=== PATIENT | male | born 1940 | race Caucasian/White ===

== ENCOUNTER 2020-05-08 16:28 | Inpatient (IN) | payer MEDICARE ==
[2020-05-08] MEDS ORDERED: Senokot S 8.6-50 MG TAB PO PRN (19:38)
[2020-05-08] MEDS ORDERED: Ventolin HFA Inhaler 60 PUFF INHALER INH PRN (19:38)
[2020-05-08] MEDS: CeleCOXIB 100 MG CAP PO SCH (20:06)
[2020-05-08] MEDS: traMADol HCl 50 MG TAB PO SCH (20:06)
[2020-05-08] MEDS: Apixaban 5 MG TAB PO SCH (20:06)
[2020-05-09 06:02] LABS: #Basophils 0.2 thou/uL (0.0-0.2); #Eosinphils 0.4 thou/uL (0.0-0.7); #Lymphocytes 3.1 thou/uL (1.20-3.40); #Monocytes 0.8 thou/uL (0.11-0.59); #Neutrophils 5.1 thou/uL (1.40-6.50); %Basophils 1.6 % (0.0-1.0); %Eosinophils 4.7 % (0.0-10.0); %Lymphocytes 31.8 % (21.0-51.0); %Monocytes 8.5 % (0.0-10.0); %Neutrophils 53.4 % (42.0-75.0); Hypochromia SLIGHT = 6-15 cells (100X) (0-5/hpf); MDiff Complete? YES; Mean Corpuscular HGB CONC 29.6 g/dL (32.0-36.0); Mean Corpuscular Hemoglobin 28.2 pg (27.0-31.0); Mean Corpuscular Volume 95.2 fL (78.0-98.0); Mean Platelet Volume 7.2 fL (7.4-10.4); Platelet Count 159 thou/uL (130-400); Platelet Morphology Comment Appears Adequate; RBC Distribution Width 12.7 % (11.5-14.5); Red Blood Cell (RBC) Count 5.32 mill/uL (4.70-6.10); White Blood Cell (WBC) Count 9.6 thou/uL (4.8-10.8)
[2020-05-09 06:07] LABS: ALT (SGPT) 51 U/L (8-55); AST (SGOT) 41 U/L (5-34); Albumin 3.3 g/dL (3.4-4.8); Alkaline Phosphatase 87 U/L (40-110); Anion Gap 13 mmol/L (10-20); BUN (Urea Nitrogen) 17 mg/dL (8.4-25.7); Bilirubin, Total 0.5 mg/dL (0.2-1.2); Calc. Creatinine Clearance 71 mL/min (70-130); Carbon Dioxide 24 mmol/L (23-31); Chloride 105 mmol/L (98-107); Estimated GFR-MDRD 68; Globulin 2.7 g/dL (2.4-3.5); Glucose 100 mg/dL (83-110); Potassium 4.4 mmol/L (3.5-5.1); Sodium 138 mmol/L (136-145)
[2020-05-09] MEDS: Tamsulosin HCl 0.4 MG CAP PO SCH (08:21)
[2020-05-09] MEDS: Apixaban 5 MG TAB PO SCH ×2 (08:21→20:10)
[2020-05-09] MEDS: CeleCOXIB 100 MG CAP PO SCH (20:07)
[2020-05-09] MEDS: traMADol HCl 50 MG TAB PO SCH (20:10)
[2020-05-09] MEDS: Betamethasone Val 0.1% OINT 15 GM TUBE TOP SCH (20:51)
--- NOTE | 2020-05-09 21:33 | PRG ---
DATE OF SERVICE: 05/09/2020 SUBJECTIVE: The patient lying in the bed, playing cards, feels well with no complaints. does want him to, however, be on mometasone ointment to the face as needed because of psoriasis. OBJECTIVE: VITAL SIGNS: His 97.3, pulse 86, respirations 22, blood pressure 129/81. LABORATORY DATA: White count 9600, hematocrit 50, hemoglobin 15. Sodium 138, potassium 4.4, chloride 105, bicarb 24, BUN 17, creatinine 1.06, glucose 100, calcium 9.0. Total bilirubin 0.5, AST 41, ALT 51, albumin 3.3, total protein 6.0. ASSESSMENT: 1. Resolving right deep vein thrombosis, on apixaban. 2. Stable dementia with mild behavioral disturbance. 3. Psoriasis, and we will start mometasone furoate cream. 4. Benign prostatic hypertrophy with controlled lower tract obstructive symptoms. 5. Hypertension, controlled to goal. PLAN: 1. Continue PT, OT. 2. Continue apixaban. 3. Start mometasone. 4. Continue tamsulosin and monitor for lower tract obstructive symptoms. 5. Continue DVT and stress ulcer prophylaxis. Job ID: [id number]
--- NOTE | 2020-05-10 03:13 | HP ---
Patient of Dr. Joaquina Neely. CHIEF COMPLAINT: DVT of the right leg with partial thrombus of the distal femoral vein. HISTORY OF PRESENT ILLNESS: The patient is unable to maintain his ADLs secondary to the pain, therefore was admitted to [facility], started on PT and was cooperating well. He is, therefore, transferred to the [facility] bed for continued therapy as he still is unable to maintain ADLs. PAST MEDICAL HISTORY: Remarkable for dementia, hypertension, benign prostatic hypertrophy, and peripheral vascular disease with TIA. PAST SURGICAL HISTORY: Positive for tonsillectomy, appendectomy, and hernia repair. SOCIAL HISTORY: He lives with his . He is a nonsmoker and nondrinker. FAMILY HISTORY: Noncontributory. MEDICATIONS: On admission include: 1. Apixaban 10 mg twice daily until May 11 and then 5 mg twice daily. 2. Celebrex 200 nightly. 3. Protonix 40 daily. 4. Seroquel 150 mg nightly. 5. Tamsulosin 0.4 daily. 6. Tramadol 50 mg at bedtime. 7. Ventolin 1 puff as needed. REVIEW OF SYSTEMS: Negative except for the right calf pain, but the patient is a very poor historian secondary to his dementia. PHYSICAL EXAMINATION: GENERAL: The patient is an elderly white male, lying in bed, in no acute distress. Oriented to person, question to place, but not time. HEENT: Pupils are equal, round, and reactive to light and accommodation. Sclerae anicteric. Conjunctivae pale. Oral mucous membranes well hydrated. NECK: Supple. There are no nodes or masses. JVP is not elevated. LUNGS: Clear. CARDIAC: Shows regular rhythm. ABDOMEN: Soft and nontender. SKIN AND EXTREMITIES: Display a right calf is tender, minimally swollen. No erythema or warmth. NEUROLOGIC: Intact. ASSESSMENT: 1. Deep venous thrombosis, on apixaban. 2. Dementia, stable. 3. Benign prostatic hypertrophy. 4. Hypertension. 5. History of transient ischemic attack. PLAN: 1. Continue PT/OT. 2. Continue full-dose anticoagulation, apixaban 10 mg twice a day for a full five days and then 5 mg twice daily. 3. Continue Seroquel for dementia and behavioral disturbances. 4. Continue tamsulosin and monitor for urinary retention. 5. Continue DVT and stress ulcer prophylaxis. Job ID: [id number]
[2020-05-10] MEDS: Betamethasone Val 0.1% OINT 15 GM TUBE TOP SCH ×2 (09:31→20:59)
[2020-05-10] MEDS: Apixaban 5 MG TAB PO SCH ×2 (09:32→20:56)
[2020-05-10] MEDS: Tamsulosin HCl 0.4 MG CAP PO SCH (09:32)
[2020-05-10] MEDS: traMADol HCl 50 MG TAB PO SCH (20:55)
[2020-05-10] MEDS: CeleCOXIB 100 MG CAP PO SCH (20:58)
[2020-05-11] MEDS: Tamsulosin HCl 0.4 MG CAP PO SCH (08:19)
[2020-05-11] MEDS: Apixaban 5 MG TAB PO SCH ×2 (08:19→20:53)
[2020-05-11] MEDS: Betamethasone Val 0.1% OINT 15 GM TUBE TOP SCH ×2 (08:19→20:55)
[2020-05-11] MEDS: traMADol HCl 50 MG TAB PO SCH (20:53)
[2020-05-11] MEDS: CeleCOXIB 100 MG CAP PO SCH (20:54)
--- NOTE | 2020-05-12 06:23 | PRG ---
DATE OF SERVICE: 05/11/2020 SUBJECTIVE: Patient feels well, sitting up in the bed with no complaints. Pleasantly confused. He is eating well. No shortness of breath or chest pain. OBJECTIVE: VITAL SIGNS: Temperature is 97, pulse 102, respirations 20, O2 sats 93% on room air, and blood pressure 167/89. LUNGS: Clear. CARDIAC: Showed regular rhythm. ABDOMEN: Soft and nontender. EXTREMITIES: Right calf is nontender. ASSESSMENT: 1. Resolving deep venous thrombosis. 2. Stable dementia. 3. Stable psoriasis. PLAN: 1. Continue full dose anticoagulation with apixaban. 2. Continue tamsulosin for lower tract obstructive symptoms. 3. Continue stress ulcer prophylaxis. 4. Dr. Oquendo will be back tomorrow. Job ID: [id number]
--- NOTE | 2020-05-12 06:26 | PRG ---
DATE OF SERVICE: 05/10/2020 SUBJECTIVE: Patient lying in bed. No complaints. Playing with some the family. He has been using the hydrocortisone steroid cream on his face. OBJECTIVE: VITAL SIGNS: Temperature 97.1, pulse 80, respirations 18, O2 sats 97% on room air, blood pressure 159/69. LUNGS: Clear. CARDIAC EXAMINATION: Shows regular rhythm. ABDOMEN: Soft and nontender. EXTREMITIES: Right calf shows minimal tenderness to palpation. No swelling. ASSESSMENT: 1. Resolving right calf deep vein thrombosis. 2. Stable dementia. 3. Stable benign prostatic hypertrophy. 4. Hypertension, controlled to goal. PLAN: 1. Continue apixaban. 2. Continue tamsulosin. Monitor lower tract obstructive symptoms. 3. Continue stress ulcer prophylaxis. 4. Start PT tomorrow. Job ID: [id number]
[2020-05-12] MEDS: Betamethasone Val 0.1% OINT 15 GM TUBE TOP SCH ×2 (08:42→21:49)
[2020-05-12] MEDS: Tamsulosin HCl 0.4 MG CAP PO SCH (08:43)
[2020-05-12] MEDS: Apixaban 5 MG TAB PO SCH ×2 (08:43→21:49)
--- NOTE | 2020-05-12 13:50 | PRG ---
DATE OF SERVICE: 05/12/2020 SUBJECTIVE: Mr. Beach is up in his chair, eating lunch. He denies any concerns or questions. Discussed with nursing. OBJECTIVE: VITAL SIGNS: He is afebrile, heart rate 72, respirations 18, oxygen saturation 95% on room air, and blood pressure 155/86. CARDIOVASCULAR SYSTEM: S1 and S2 plus. RESPIRATORY SYSTEM: Normal vesicular breath sounds. ABDOMEN: Soft, nontender. Bowel sounds heard in all quadrants. EXTREMITIES: Without cyanosis or clubbing. Trace edema of the right leg. CENTRAL NERVOUS SYSTEM: Mild cognitive deficits, otherwise nonfocal. IMPRESSION: 1. Right leg deep venous thrombosis. 2. Hypertension. 3. BPH. 4. Peripheral vascular disease. 5. History of transient ischemic attack. 6. Dementia. PLAN: 1. Continue current medications. 2. Nutritional support. 3. Physical therapy. 4. Monitor neuro status. 5. Routine laboratory values. 6. DVT prophylaxis-he is on Eliquis. He is to switch to 5 mg b.i.d. . 7. Discussed with the patient and nursing in detail. 8. No family at bedside. Job ID: [id number]
[2020-05-12] MEDS: CeleCOXIB 100 MG CAP PO SCH (21:50)
[2020-05-12] MEDS: traMADol HCl 50 MG TAB PO SCH (21:52)
[2020-05-13] MEDS: Tamsulosin HCl 0.4 MG CAP PO SCH (08:20)
[2020-05-13] MEDS: Apixaban 5 MG TAB PO SCH ×2 (08:20→20:59)
[2020-05-13] MEDS: Betamethasone Val 0.1% OINT 15 GM TUBE TOP SCH ×2 (10:13→20:57)
--- NOTE | 2020-05-13 11:55 | PRG ---
DATE OF SERVICE: 05/13/2020 SUBJECTIVE: Mr. Beach is up in bed. He is working with therapy. Remains pleasantly confused. Denies any questions or concerns. OBJECTIVE: VITAL SIGNS: He is afebrile, heart rate 80, respirations 18, oxygen saturation 94% on room air, blood pressure 143/90. CARDIOVASCULAR SYSTEM: S1 and S2 plus. RESPIRATORY SYSTEM: Normal vesicular breath sounds. ABDOMEN: Soft and nontender. Bowel sounds heard in all quadrants. EXTREMITIES: Without cyanosis or clubbing. CENTRAL NERVOUS SYSTEM: Cognitive deficits and generalized weakness, otherwise nonfocal. IMPRESSION: 1. Recent right leg deep vein thrombosis. 2. Hypertension. 3. Benign prostatic hypertrophy. 4. Peripheral vascular disease. 5. History of transient ischemic attack. 6. Dementia. 7. Deconditioning. PLAN: 1. Continue current medications. 2. Heart healthy diet. 3. Monitor neuro status. 4. DVT prophylaxis, he is on Eliquis. 5. Decubitus precautions. 6. Stress ulcer prophylaxis. 7. Continue therapy. 8. Routine laboratory values. Job ID: [id number]
[2020-05-13] MEDS: CeleCOXIB 100 MG CAP PO SCH (20:58)
[2020-05-13] MEDS: traMADol HCl 50 MG TAB PO SCH (20:59)
[2020-05-14 05:16] LABS: Hemoglobin 13.9 g/dL (14.0-18.0); Platelet Count 201 thou/uL (130-400)
[2020-05-14] MEDS: Betamethasone Val 0.1% OINT 15 GM TUBE TOP SCH ×2 (08:32→21:36)
[2020-05-14] MEDS: Apixaban 5 MG TAB PO SCH ×2 (08:32→21:33)
[2020-05-14] MEDS: Tamsulosin HCl 0.4 MG CAP PO SCH (08:33)
--- NOTE | 2020-05-14 13:15 | PRG ---
DATE OF SERVICE: 05/14/2020 SUBJECTIVE: Mr. Beach is doing well. He remains confused. He just finished his lunch. He denies any questions or concerns. Discussed with nursing. No complaints. OBJECTIVE: VITAL SIGNS: He is afebrile, heart rate 76, respirations 20, oxygen saturations 93% on room air, and blood pressure 120/74. CARDIOVASCULAR: S1 and S2 plus. RESPIRATORY: Normal vesicular breath sounds. ABDOMEN: Soft and nontender. Bowel sounds are heard in all quadrants. EXTREMITIES: Without cyanosis or clubbing. CENTRAL NERVOUS SYSTEM: Cognitive deficit and generalized weakness, otherwise nonfocal. LABORATORY DATA: Hemoglobin of 13.9, hematocrit 46.6, and platelet count of 201. Creatinine is 1.05. IMPRESSION: 1. Right lower extremity deep venous thrombosis. 2. Dementia. 3. Deconditioning. 4. Anemia, unknown etiology. 5. Benign prostatic hypertrophy. 6. Peripheral vascular disease. 7. Hypertension. PLAN: 1. Continue current medications. 2. Nutritional support with heart healthy diet. 3. Fall precautions. 4. DVT prophylaxis, he is on Eliquis. 5. Decubitus precautions. 6. Stress ulcer prophylaxis. 7. Routine laboratory values. 8. Continue therapy. 9. Monitor cognition. Job ID: [id number]
[2020-05-14] MEDS: CeleCOXIB 100 MG CAP PO SCH (21:33)
[2020-05-14] MEDS: traMADol HCl 50 MG TAB PO SCH (21:34)
--- NOTE | 2020-05-15 09:22 | PRG ---
DATE OF SERVICE: 05/15/2020 SUBJECTIVE: Mr. Beach is doing the same. He remains confused. Discussed with therapy. They state that it is difficult to make the patient comprehend what he needs to do and sometimes he is cooperative and sometimes he is not. Medically, there are no issues. OBJECTIVE: VITAL SIGNS: He is afebrile, heart rate 72, respirations 18, oxygen saturation 95% on room air, and blood pressure 146/90. CARDIOVASCULAR SYSTEM: S1 and S2 plus. RESPIRATORY SYSTEM: Normal vesicular breath sounds. ABDOMEN: Soft and nontender. Bowel sounds heard in all quadrants. EXTREMITIES: Without cyanosis or clubbing. Trace edema to the right leg. No calf tenderness. CENTRAL NERVOUS SYSTEM: Awake and responsive, pleasantly confused with baseline dementia, grossly nonfocal except for generalized weakness. IMPRESSION: 1. Dementia. 2. Right leg deep venous thrombosis. 3. Benign prostatic hypertrophy. 4. Deconditioning. 5. Hypertension. 6. Peripheral vascular disease. PLAN: 1. Continue current medications. 2. Nutritional support with low-sodium heart healthy diet. 3. Monitor blood pressure and adjust medications. 4. DVT prophylaxis - he is on Eliquis. 5. Decubitus precautions. 6. Stress ulcer prophylaxis. 7. Routine laboratory values. 8. Physical therapy. 9. No family at bedside. Job ID: [id number]
[2020-05-15] MEDS: Apixaban 5 MG TAB PO SCH ×2 (09:38→21:19)
[2020-05-15] MEDS: Tamsulosin HCl 0.4 MG CAP PO SCH (09:38)
[2020-05-15] MEDS: Betamethasone Val 0.1% OINT 15 GM TUBE TOP SCH ×2 (09:39→21:21)
[2020-05-15] MEDS: CeleCOXIB 100 MG CAP PO SCH (21:19)
[2020-05-15] MEDS: traMADol HCl 50 MG TAB PO SCH (21:20)
[2020-05-16] MEDS: Betamethasone Val 0.1% OINT 15 GM TUBE TOP SCH ×2 (08:45→21:14)
[2020-05-16] MEDS: Tamsulosin HCl 0.4 MG CAP PO SCH (08:46)
[2020-05-16] MEDS: Apixaban 5 MG TAB PO SCH ×2 (08:46→21:15)
--- NOTE | 2020-05-16 16:12 | PRG ---
DATE OF SERVICE: 05/16/2020 SUBJECTIVE: Mr. Beach is up in his chair. He is working on a coloring book. Denies any questions or concerns. OBJECTIVE: VITAL SIGNS: He is afebrile, heart rate 90, respirations 18, oxygen saturation 94% on room air, blood pressure 167/81. CARDIOVASCULAR: S1 and S2 plus. RESPIRATORY: Normal vesicular breath sounds. ABDOMEN: Soft, nontender. Bowel sounds heard in all quadrants. EXTREMITIES: Without cyanosis, clubbing. CENTRAL NERVOUS SYSTEM: Cognitive deficits and generalized weakness. IMPRESSION: 1. Dementia. 2. Right leg deep venous thrombosis. 3. Hypertension. 4. Deconditioning. 5. Peripheral vascular disease. 6. BPH. PLAN: 1. Continue current medications. 2. Heart-healthy. 3. Monitor blood pressure and adjust medications. 4. DVT prophylaxis - he is on Eliquis. 5. Decubitus precautions. 6. Stress ulcer prophylaxis. 7. Continue therapy. 8. Routine laboratory values. 9. Discussed with the patient and nursing in detail. All questions answered. Job ID: [id number]
[2020-05-16] MEDS: CeleCOXIB 100 MG CAP PO SCH (21:15)
[2020-05-16] MEDS: traMADol HCl 50 MG TAB PO SCH (21:16)
[2020-05-17] MEDS: Tamsulosin HCl 0.4 MG CAP PO SCH (09:56)
[2020-05-17] MEDS: Betamethasone Val 0.1% OINT 15 GM TUBE TOP SCH ×2 (09:56→21:03)
[2020-05-17] MEDS: Apixaban 5 MG TAB PO SCH ×2 (09:56→21:04)
[2020-05-17] MEDS: traMADol HCl 50 MG TAB PO SCH (21:04)
[2020-05-17] MEDS: CeleCOXIB 100 MG CAP PO SCH (21:04)
[2020-05-17 23:05] VITALS: BMI 25.5
[2020-05-18] MEDS: Tamsulosin HCl 0.4 MG CAP PO SCH (08:40)
[2020-05-18] MEDS: Apixaban 5 MG TAB PO SCH ×2 (08:40→20:53)
[2020-05-18] MEDS: Betamethasone Val 0.1% OINT 15 GM TUBE TOP SCH ×2 (08:41→20:52)
--- NOTE | 2020-05-18 13:50 | PRG ---
DATE OF SERVICE: 05/17/2020 SUBJECTIVE: Mr. Beach is doing the same, pleasantly confused. Denies any questions or concerns. Discussed with nursing. OBJECTIVE: VITAL SIGNS: He is afebrile. Heart rate 78, respirations 18, oxygen saturation 95%, blood pressure 147/98. CARDIOVASCULAR: S1 and S2 plus. RESPIRATORY: Normal vesicular breath sounds. ABDOMEN: Soft, nontender. Bowel sounds heard in all quadrants. EXTREMITIES: Without cyanosis or clubbing. CENTRAL NERVOUS SYSTEM: Pleasantly confused, generalized weakness, otherwise nonfocal. IMPRESSION: 1. Dementia. 2. Right leg deep venous thrombosis. 3. Hypertension. 4. Deconditioning. 5. Peripheral vascular disease. 6. BPH. PLAN: 1. Continue current medications. 2. Heart healthy diet. 3. Monitor blood pressure and adjust medications as needed. 4. DVT prophylaxis - he is on Eliquis. 5. Decubitus precautions. 6. Stress ulcer prophylaxis. 7. Routine laboratory values. We will give his a call and give her an update today. Job ID: [id number]
--- NOTE | 2020-05-18 17:49 | PRG ---
DATE OF SERVICE: 05/18/2020 SUBJECTIVE: Mr. Beach is up in bed, remains confused. He apparently was agitated this morning. I had a long discussion with his spouse. She understands that the limiting factor is the dementia. Medically, he is doing well. She is going to attend the case conference tomorrow. Her plan is to take him home. OBJECTIVE: VITAL SIGNS: He is afebrile, heart rate 89, respirations 18, oxygen saturation 95% on room air, and blood pressure 145/88. CARDIOVASCULAR SYSTEM: S1 and S2 plus. RESPIRATORY: Normal vesicular breath sounds. ABDOMEN: Soft and nontender. Bowel sounds heard in all quadrants. EXTREMITIES: Without cyanosis or clubbing. CENTRAL NERVOUS SYSTEM: Cognitive deficits and generalized weakness, otherwise nonfocal. IMPRESSION: 1. Right leg deep venous thrombosis , on anticoagulation. 2. Dementia. 3. Hypertension. 4. Deconditioning. 5. Peripheral vascular disease. 6. Benign prostatic hyperplasia. PLAN: 1. Continue current medications. 2. Heart healthy diet. 3. Monitor blood pressure and adjust medications. 4. DVT prophylaxis - He is on Eliquis. I advised the that he needs to stay on it for at least 3 months. 5. Decubitus precautions. 6. Stress ulcer prophylaxis. 7. Therapy. 8. Discharge planning. Job ID: [id number]
[2020-05-18] MEDS: traMADol HCl 50 MG TAB PO SCH (20:54)
[2020-05-18] MEDS: CeleCOXIB 100 MG CAP PO SCH (20:54)
[2020-05-19] MEDS: Tamsulosin HCl 0.4 MG CAP PO SCH (09:05)
[2020-05-19] MEDS: Apixaban 5 MG TAB PO SCH ×2 (09:05→21:14)
[2020-05-19] MEDS: Betamethasone Val 0.1% OINT 15 GM TUBE TOP SCH ×3 (12:05→21:15)
--- NOTE | 2020-05-19 13:41 | PRG ---
DATE OF SERVICE: 05/19/2020 SUBJECTIVE: Mr. Beach is up in bed. His spouse is in the room, remains confused, awaiting for the meeting with the patient is stable for discharge as long as therapy wants to take him home. OBJECTIVE: VITAL SIGNS: He is afebrile. Heart rate 71, respirations 20, oxygen saturation 96% on room air, blood pressure 144/82. CARDIOVASCULAR SYSTEM: S1-S2 plus. RESPIRATORY SYSTEM: Normal vesicular breath sounds. ABDOMEN: Soft and nontender. Bowel sounds are heard in all quadrants. EXTREMITIES: Without cyanosis or clubbing. IMPRESSION: 1. Right lower extremity deep venous thrombosis. 2. Dementia. 3. BPH. 4. Deconditioning. 5. Hypertension. 6. Peripheral vascular disease. PLAN: 1. Continue current medications. 2. Heart-healthy diet. 3. DVT prophylaxis - he is on Eliquis. 4. Decubitus precautions. 5. Stress ulcer prophylaxis. 6. Discharge planning. 7. Discussed with spouse in detail. All questions answered. He also has seborrheic dermatitis for which he has been prescribed topical steroids, but apparently most of the times he refuses nursing to place it on him. Job ID: [id number]
[2020-05-19] MEDS: CeleCOXIB 100 MG CAP PO SCH (21:13)
[2020-05-19] MEDS: traMADol HCl 50 MG TAB PO SCH (21:14)
[2020-05-20] MEDS: Betamethasone Val 0.1% OINT 15 GM TUBE TOP SCH ×2 (09:06→20:49)
[2020-05-20] MEDS: Apixaban 5 MG TAB PO SCH ×2 (09:06→20:46)
[2020-05-20] MEDS: Tamsulosin HCl 0.4 MG CAP PO SCH (09:06)
--- NOTE | 2020-05-20 13:39 | PRG ---
DATE OF SERVICE: 05/20/2020 SUBJECTIVE: Mr. Beach is doing the same. Remains confused. He apparently has been discharged by Occupational Therapy. Physical Therapy is still working with him. is going to draining on Monday anticipated discharge Monday or Monday. OBJECTIVE: VITAL SIGNS: He is afebrile, heart rate 71, respirations are 18, oxygen saturation 95% on room air, and blood pressure 134/76. CARDIOVASCULAR SYSTEM: S1 and S2 plus. RESPIRATORY SYSTEM: Normal vesicular breath sounds. ABDOMEN: Soft and nontender. Bowel sounds heard in all quadrants. EXTREMITIES: Without cyanosis or clubbing. CENTRAL NERVOUS SYSTEM: Cognitive deficits, stable. Otherwise, nonfocal. IMPRESSION: 1. Resolving right lower extremity deep vein thrombosis. 2. Benign prostatic hypertrophy. 3. Dementia. 4. Hypertension. 5. Deconditioning. 6. Peripheral vascular disease. 7. Seborrheic dermatitis. PLAN: 1. Continue current medications. 2. Heart healthy diet. 3. DVT prophylaxis-he is on Eliquis. 4. Decubitus precautions. 5. Stress ulcer prophylaxis. 6. Spousal training. 7. Discharge planning. 8. We will check with spouse as to what home health she wants to use. Job ID: [id number]
[2020-05-20] MEDS: traMADol HCl 50 MG TAB PO SCH (20:47)
[2020-05-20] MEDS: CeleCOXIB 100 MG CAP PO SCH (20:47)
[2020-05-21 05:21] LABS: Hemoglobin 13.7 g/dL (14.0-18.0); Platelet Count 251 thou/uL (130-400)
[2020-05-21] MEDS: Tamsulosin HCl 0.4 MG CAP PO SCH (08:04)
[2020-05-21] MEDS: Apixaban 5 MG TAB PO SCH ×2 (08:04→21:10)
[2020-05-21] MEDS: Betamethasone Val 0.1% OINT 15 GM TUBE TOP SCH ×2 (08:04→21:10)
--- NOTE | 2020-05-21 12:30 | PRG ---
DATE OF SERVICE: 05/21/2020 SUBJECTIVE: Mr. Beach is doing the same. Denies any complaints. No family at bedside. is supposed to come tomorrow for some family training. OBJECTIVE: VITAL SIGNS: He is afebrile, heart rate 70, respirations are 18, oxygen saturation 95% on room air, and blood pressure 159/79. CARDIOVASCULAR SYSTEM: S1 and s2 plus. RESPIRATORY SYSTEMS: Normal vesicular breath sounds. ABDOMEN: Soft and nontender. Bowel sounds heard in all quadrants. EXTREMITIES: Without cyanosis or clubbing. CENTRAL NERVOUS SYSTEM: Cognitive deficits and generalized weakness. Otherwise, nonfocal. IMPRESSION: 1. Right lower extremity deep vein thrombosis. 2. BPH. 3. Dementia. 4. Hypertension. 5. Deconditioning. 6. Seborrheic dermatitis. PLAN: 1. Continue current medications. 2. Heart healthy diet. 3. Continue Eliquis. 4. Decubitus precautions. 5. Spousal training tomorrow. 6. Discharge planning. Job ID: [id number]
[2020-05-21] MEDS: CeleCOXIB 100 MG CAP PO SCH (21:10)
[2020-05-21] MEDS: traMADol HCl 50 MG TAB PO SCH (21:11)
[2020-05-22] MEDS: Betamethasone Val 0.1% OINT 15 GM TUBE TOP SCH ×2 (08:32→21:29)
[2020-05-22] MEDS: Tamsulosin HCl 0.4 MG CAP PO SCH (08:32)
[2020-05-22] MEDS: Apixaban 5 MG TAB PO SCH ×2 (08:32→21:28)
--- NOTE | 2020-05-22 09:19 | PRG ---
DATE OF SERVICE: 05/22/2020 SUBJECTIVE: Mr. Beach is doing the same. He is up in bed, pleasantly confused. His is supposed to come and work with therapy on some training. They use [facility] apparently the only prescription she needs is Eliquis. I am going to go ahead and send it in for a month. She also apparently had [facility] in the past and she is very happy with it. We will send an order for Case Management to arrange for [facility] to resume. OBJECTIVE: VITAL SIGNS: He is afebrile, heart rate 92, respirations 20, oxygen saturation 96% on room air, and blood pressure 170/74. CARDIOVASCULAR SYSTEM: S1 and S2 plus. RESPIRATORY SYSTEM: Normal vesicular breath sounds. ABDOMEN: Soft and nontender. Bowel sounds heard in all quadrants. EXTREMITIES: Without cyanosis or clubbing. CENTRAL NERVOUS SYSTEM: Cognitive deficits, otherwise nonfocal. IMPRESSION: 1. Right lower extremity deep venous thrombosis - on Eliquis. 2. Benign prostatic hyperplasia. 3. Dementia. 4. Hypertension. 5. Improving deconditioning. 6. Seborrheic dermatitis. PLAN: 1. Continue current medications. 2. Nutritional support. 3. Heart healthy diet. 4. Continue Eliquis. 5. Physical therapy. 6. Discharge planning. Job ID: [id number]
[2020-05-22] MEDS: CeleCOXIB 100 MG CAP PO SCH (21:29)
[2020-05-22] MEDS: traMADol HCl 50 MG TAB PO PRN (21:30)
[2020-05-23] MEDS: Apixaban 5 MG TAB PO SCH ×2 (09:02→20:34)
[2020-05-23] MEDS: Betamethasone Val 0.1% OINT 15 GM TUBE TOP SCH ×2 (09:02→20:34)
[2020-05-23] MEDS: Tamsulosin HCl 0.4 MG CAP PO SCH (09:02)
[2020-05-23] MEDS: CeleCOXIB 100 MG CAP PO SCH (20:33)
[2020-05-23] MEDS: traMADol HCl 50 MG TAB PO PRN (20:35)
[2020-05-24] MEDS: Apixaban 5 MG TAB PO SCH ×2 (08:45→21:16)
[2020-05-24] MEDS: Tamsulosin HCl 0.4 MG CAP PO SCH (08:45)
[2020-05-24] MEDS: Betamethasone Val 0.1% OINT 15 GM TUBE TOP SCH ×2 (08:45→21:17)
--- NOTE | 2020-05-24 09:34 | PRG ---
DATE OF SERVICE: 05/23/[address] Joaquina Neely. SUBJECTIVE: The patient is sitting up in the bed, resting, confused, no distress. OBJECTIVE: VITAL SIGNS: Blood pressure is 172/105, temperature is 97, pulse 99, respirations 20, O2 sats 97% on room air. Blood pressure does fluctuate but is apparently more higher than normal. LUNGS: Clear. CARDIAC: Shows regular rhythm. ABDOMEN: Soft and nontender. SKIN/EXTREMITIES: Showed no edema, swelling, or cyanosis. ASSESSMENT: 1. Resolving right lower extremity deep venous thrombosis. 2. Stable dementia. 3. Hypertension, controlled to goal. 4. Deconditioning, slowly improving. PLAN: 1. Continue PT, OT. 2. Continue anticoagulation of DVT discharge planning. Job ID: [id number]
[2020-05-24] MEDS: CeleCOXIB 100 MG CAP PO SCH (21:16)
[2020-05-24] MEDS: traMADol HCl 50 MG TAB PO PRN (21:17)
[2020-05-25 07:26] VITALS: BP 127/71; TEMP 98.6
[2020-05-25] MEDS: Betamethasone Val 0.1% OINT 15 GM TUBE TOP SCH (09:11)
[2020-05-25] MEDS: Tamsulosin HCl 0.4 MG CAP PO SCH (09:11)
[2020-05-25] MEDS: Apixaban 5 MG TAB PO SCH (09:11)
--- NOTE | 2020-05-26 02:41 | DIS ---
DATE OF ADMISSION: 05/08/2020 DATE OF DISCHARGE: 05/25/2020 PRINCIPAL DIAGNOSIS: Right lower extremity deep venous thrombosis. SECONDARY DIAGNOSES: 1. Dementia. 2. Benign prostatic hypertrophy. 3. Osteoarthritis. 4. Hypertension. 5. Peripheral vascular disease. 6. History of transient ischemic attack. 7. Deconditioning. COMPLICATIONS: None. ADVERSE REACTIONS: None. PROCEDURES: None. CONSULTATIONS: Physical Therapy and Occupational Therapy. HOSPITAL COURSE: The patient was admitted as a transfer from [facility] in [place] after being admitted there with right lower extremity DVT and was noted to be deconditioning. He was felt to be a candidate for in-therapy and transferred here. He has improved gradually, main limiting factor being his dementia and cognition. He was deemed to have reached maximum medical improvement. His apparently came by and did family training and she is planning on taking him home today. Therapy and nursing are okay with that and he will be discharged on his current medications. states that the only new medicine is the Eliquis, which I am going to be sending and she wants to send it to [facility] here . She was advised that he needs to stay on it for a total of 3 months. He is to follow up with his PCP for close monitoring and she is to call us with any questions or concerns. She also wanted Home Health and they have had [facility] in the past and so arrangements are being made for [facility] to follow. This note to be used as [id number]. The patient is homebound. He cannot drive. He does qualify for home health and needs custodial visit to monitor his blood pressure and to monitor for any signs of bleeding since he is on the blood thinner and to monitor continued improvement of his right lower extremity DVT. He also needs probably therapy at home. This will be followed by his PCP. DISCHARGE PHYSICAL EXAMINATION: VITAL SIGNS: On the day of discharge, the patient is afebrile. Heart rate is 70, respirations 20, oxygen saturation 92% on room air, and blood pressure 127/71. CARDIOVASCULAR SYSTEM: S1 and S2 plus. RESPIRATORY SYSTEM: Normal vesicular breath sounds. ABDOMEN: Soft and nontender. Bowel sounds heard in all quadrants. EXTREMITIES: Without cyanosis or clubbing. CENTRAL NERVOUS SYSTEM: Cognitive deficits, otherwise nonfocal. DISCHARGE MEDICATIONS: Same as admission; 1. Eliquis 5 mg b.i.d. 2. Celebrex 200 mg at bedtime. 3. Pantoprazole 40 mg daily. 4. Seroquel 150 mg daily. 5. Senokot S 1 tablet b.i.d. p.r.n. 6. Tamsulosin 0.4 mg at bedtime. 7. Tramadol 50 mg at bedtime p.r.n. 8. Albuterol 1 inhalation q.6 p.r.n. Prescriptions have been sent into [facility]. The only one he needs is the Eliquis. I have sent in a month's supply. He will follow up with his PCP, Dr. Harvey in the next 5 to 7 days. His is apparently coming by to pick him up later today. For full details, please see chart. Total time spent on this discharge including coordination of care was 37 minutes. Job ID: [id number]
== END 2020-05-25 17:00 | disposition home health service (06) | DRG 300 ==
LOC: NAV ACUTE 16:28
PROVIDERS: ADMIT Internal Medicine; ATTEND Internal Medicine
DX: I82.411 Acute embolism and thrombosis of right femoral vein (principal); F03.91 Unspecified dementia, unspecified severity, with behavioral disturbance; N40.0 Benign prostatic hyperplasia without lower urinary tract symptoms; I10 Essential (primary) hypertension; L40.9 Psoriasis, unspecified; Z79.899 Other long term (current) drug therapy; Z90.49 Acquired absence of other specified parts of digestive tract; Z98.890 Other specified postprocedural states; Z88.8 Allergy status to other drugs, medicaments and biological substances; Z86.73 Personal history of transient ischemic attack (TIA), and cerebral infarction without residual deficits; R53.81 Other malaise; D64.9 Anemia, unspecified; L21.9 Seborrheic dermatitis, unspecified; M19.90 Unspecified osteoarthritis, unspecified site; I73.9 Peripheral vascular disease, unspecified
CPT/HCPCS: 36415; 80053; 82565; 85014; 85018; 85025; 85049